=== PATIENT | male | born 1980 | race Two or more races ===

== ENCOUNTER 2016-11-09 21:19 | Emergency (ER) | payer OTHER ==
[~2016-11-09] VITALS: Ht 162.6 cm; Wt 72.6 kg
--- NOTE | ~2016-11-09 | CT2 ---
[facility] A Service of [facility] RADIOLOGY TEXT RESULTS PATIENT: CHRISTEN DELGADO LOCATION: [facility] : 84 UNIT #: [id number] AGE: [address]: Hardeep Smyth MD SEX: M ORDER DR: [id number] [id number] [facility]. [place], [place] [address] [id number] MR#: [id number] #: [id number] NAME: CHRISTEN DELGADO. : 1980 SEX: M STUDY DATE/TIME: 11/10/2016 0:26 UNIT: [facility] ROOM: STUDY DESCRIPTION: CT Abd and Pelv W Cont Attending Physician: Hardeep Smyth Ordering Physician: Andres Smyth M.D. Primary Care Physician: Primary Care Physician No MEDICAL IMAGING REPORT This report is preliminary unless electronic signature is present EXAM CT abdomen and pelvis without contrast INDICATION Right lower quadrant abdominal pain for the past 3 days. PROCEDURE Contrast-enhanced CT abdomen and pelvis. This CT exam was performed with one or more of the following radiation dose reduction techniques: automatic exposure control, adjustment of mA and/or kV according to patient size, and iterative reconstruction. COMPARISON None. FINDINGS ABDOMEN WITH CONTRAST: Included lung bases are clear. Hepatic steatosis. The spleen, adrenal glands, pancreas and gallbladder unremarkable. Small cyst in the lower pole left kidney otherwise kidneys unremarkable. Bowel loops are nondilated. The appendix is normal. There is abnormal thickening and inflammatory change involving the mid ascending colon. No visible abscess or perforation. PELVIS WITH CONTRAST: There is no pelvic mass or fluid. No aggressive-appearing bone lesion. IMPRESSION 1. Inflammatory change in the mid ascending colon in keeping with focal colitis. No evidence for abscess or perforation. The appendix is normal. 2. Hepatic steatosis. [facility] A Service of [facility] RADIOLOGY TEXT RESULTS PATIENT: CHRISTEN DELGADO LOCATION: [facility] : 84 UNIT #: [id number] AGE: [address]: Hardeep Smyth MD SEX: M ORDER DR: Dictated by... Andres Aly M.D. THIS IS AN ELECTRONICALLY VERIFIED REPORT Andres Aly M.D. at 11/12/2016 9:58 PM JOHANAD/corinne TD: 11/10/2016 04:41 JOB #: [id number] MEDICAL IMAGING REPORT Page 1 of 1 COPY
[2016-11-09 23:20] LABS: URINE SOURCE CLEAN CATCH
[2016-11-09 23:29] LABS: URINE APPEARANCE CLEAR; URINE BILIRUBIN NEG (NEG); URINE BLOOD NEG (NEG); URINE COLOR YELLOW; URINE GLUCOSE NEG (NEG); URINE KETONE NEG (NEG); URINE LEUKOCYTE ESTERASE NEG (NEG); URINE NITRATE NEG (NEG); URINE PH 6.5 (5-8); URINE PROTEIN TRACE (NEG); URINE SPECIFIC GRAVITY 1.033 (1.003-1.035)
[2016-11-09 23:38] LABS: CULTURE INDICATED? NO
[2016-11-09 23:46] LABS: BASOPHIL# 0.1 X10e3 (0-0.3); BASOPHIL% 0.8 % (0-2.5); EOSINOPHIL# 0.2 X10e3 (0-0.7); EOSINOPHIL% 1.3 % (0.0-7.0); HEMATOCRIT 45.1 % (38.0-50.0); HEMOGLOBIN 15.6 gm/dL (13.0-16.0); LYMPHOCYTE# 3.3 X10e3 (1.0-3.5); LYMPHOCYTE% 23.9 % (17.0-45.0); MEAN CELL VOLUME 86.6 FL (83-96); MEAN CORPUSCULAR HGB CONC 34.7 g/dL (30-36); MEAN PLATELET VOLUME 9.3 FL (6.5-11.5); MONOCYTE# 1.3 X10e3 (0-1.0); MONOCYTE% 9.1 % (3.0-12.0); NEUTROPHIL# 8.9 X10e3 (1.5-7.1); NEUTROPHIL% 64.9 % (40-75); PLATELET COUNT 208 X10e3 (140-420); RED BLOOD COUNT 5.21 X10e (3.90-5.60); RED CELL DISTRIBUTION WIDTH 12.9 % (11.0-15.5); WHITE BLOOD COUNT 13.8 X10e3 (4.0-10.5)
[2016-11-09 23:48] LABS: DIFF IND NO
[2016-11-10 00:14] LABS: ALBUMIN SERUM 4.3 g/dL (3.5-5.0); BILIRUBIN, DIRECT 0.1 mg/dL (0.0-0.2); BILIRUBIN,INDIRECT 0.3 mg/dL (0.0-0.9); BILIRUBIN,TOTAL 0.4 mg/dL (0.2-2.0); BUN/CREATININE RATIO 14.44; CALCIUM SERUM 9.4 mg/dL (8.4-10.2); CREATININE SERUM 0.9 mg/dL (0.6-1.4); POTASSIUM 3.6 mmol/L (3.5-5.1); PROTEIN TOTAL SERUM 8.1 g/dL (6.0-8.3)
[2016-11-10 04:17] LABS: CHOLESTEROL 254 mg/dL (0-200); HDL CHOLESTEROL 49 mg/dL (29-75); LDL/HDL RATIO 3 RATIO (0-4); TRIGLYCERIDES 243 mg/dL (10-160)
[2016-11-10 04:21] LABS: LDL CHOLESTEROL 156 mg/dL ([, -130])
== END 2016-11-10 03:53 | disposition home or self-care (01) ==
LOC: CED 21:19
PROVIDERS: Internal Medicine Cardiovascular Disease
DX: K52.9 Noninfective gastroenteritis and colitis, unspecified (principal); E78.5 Hyperlipidemia, unspecified
CPT/HCPCS: 36415; 74177; 80048; 80061; 80076; 81003; 83690; 85025; 96365; 96375; 99284; J2270; J2405; Q9967